=== PATIENT | female | born 1945 | race Caucasian/White ===

== ENCOUNTER 2018-02-10 16:01 | Emergency (ER) | payer OTHER ==
[2018-02-10 16:21] VITALS: BP 128/64; PULSE 90; TEMP 97.6; BMI 18.1
--- NOTE | 2018-02-10 16:55 | PDOC ---
History of Present Illness - General History Source: Patient Exam Limitations: No Limitations - History of Present Illness Initial Comments: 02/10/18 18:19 The patient is a 72 year old female with significant past medical history of hypertension, osteoporosis, GI bleeding, and right inguinal hernia who presents to the emergency department complaining of right scapular and right flank pain since yesterday. The patient describes the pain as mild to moderate, without radiation, and denies any modifying factors. The patient reports lifting a heavy bucket of water which resulted in her falling on the floor in pain. The patient reports not being able to sleep secondary to pain. The patient reports associated symptoms of nausea and epigastric discomfort. The patient admits to taking Meloxicam which temporarily alleviated the pain during the day, but it continued shortly after at night. The patient denies chest pain, shortness of breath, cough, headache, and dizziness. Denies fevers, chills, vomiting, diarrhea, and constipation. Denies dysuria, frequency, urgency, and hematuria. Allergies: Diazepam and Morphine. Past surgical history: Hernia repair(2009) and parathyroid removal. Social history: Current everyday smoker. No reported alcohol or drug use. PCP: Dr. Walter Mims <Gokul Smith - Last Filed: 02/10/18 18:55> <Kasey Summers - Last Filed: 02/11/18 02:46> - General Chief Complaint: Injury Stated Complaint: BACK PAIN Time Seen by Provider: 02/10/18 16:35 Past History <Gokul Smith - Last Filed: 02/10/18 18:55> - Past Medical History Anemia: No Asthma: No Cancer: No Cardiac Disorders: No CVA: No COPD: No CHF: No Dementia: No Diabetes: Yes (pre diabetic) GI Disorders: Yes (GERD) Disorders: No HTN: Yes Hypercholesterolemia: Yes Liver Disease: No Seizures: No Thyroid Disease: Yes (HYPER) - Surgical History Abdominal Surgery: Yes (hernia repair 2009) Appendectomy: No Cardiac Surgery: No Cholecystectomy: No Lung Surgery: No Neurologic Surgery: No Orthopedic Surgery: No - Suicide/Smoking/Psychosocial Hx Smoking History: Never smoked Have you smoked in the past 12 months: No Information on smoking cessation initiated: No Hx Alcohol Use: No Drug/Substance Use Hx: No Substance Use Type: None Hx Substance Use Treatment: No <Kasey Summers - Last Filed: 02/11/18 02:46> - Past Medical History Allergies/Adverse Reactions: Allergies Allergy/AdvReac Type Severity Reaction Status Date / Time diazepam [From Valium] Allergy Severe Itching Verified 02/10/18 16:20 morphine AdvReac Intermediate Verified 02/10/18 16:20 Home Medications: Ambulatory Orders Enalapril Maleate 10 mg PO DAILY 01/18/13 Esomeprazole Mag Trihydrate [Nexium] 40 mg PO DAILY 01/30/14 Calcium Carbonate/Vitamin D3 [Calcium 600 + Vit D 400 Softgl] 1 tab PO DAILY Cholecalciferol (Vitamin D3) [Vitamin D3] 50,000 unit PO ASDIR 09/23/16 Warner-3 Acid Ethyl Esters [Lovaza] 1 tab PO DAILY 09/23/16 Polyethylene Glycol 3350 [Miralax (For Daily Use) -] 17 gm PO DAILY 09/23/16 Zolpidem Tartrate [Ambien] 2.5 mg PO HS 09/23/16 Review of Systems - Review of Systems Able to Perform ROS?: Yes Comments:: 02/10/18 18:20 CONSTITUTIONAL: +loss of appetite Absent: fever, chills, diaphoresis, generalized weakness, and malaise. HEENT: Absent: rhinorrhea, nasal congestion, throat pain, throat swelling, difficulty swallowing, mouth swelling, ear pain, eye pain, visual Changes CARDIOVASCULAR: Absent: chest pain, syncope, palpitations, irregular heart rate, lightheadedness , peripheral edema RESPIRATORY: Absent: cough, shortness of breath, dyspnea with exertion, orthopnea, wheezing, stridor, hemoptysis GASTROINTESTINAL: +Nausea. Absent: abdominal pain, abdominal distension, vomiting, diarrhea, constipation, melena, hematochezia GENITOURINARY: +Right flank pain. Absent: dysuria, frequency, urgency, hesitancy, hematuria, genital pain MUSCULOSKELETAL: +Upper thoracic pain. Absent: myalgia, arthralgia, joint swelling SKIN: Absent: rash, itching, pallor HEMATOLOGIC/IMMUNOLOGIC: Absent: easy bleeding, easy bruising, lymphadenopathy, frequent infections ENDOCRINE: Absent: unexplained weight gain, unexplained weight loss, heat intolerance, cold intolerance NEUROLOGIC: Absent: headache, focal weakness or paresthesias, dizziness, unsteady gait, seizure, mental status changes, bladder or bowel incontinence PSYCHIATRIC: Absent: anxiety, depression, suicidal or homicidal ideation, hallucinations. <Gokul Smith - Last Filed: 02/10/18 18:55> *Physical Exam - Vital Signs Last Vital Signs Temp Pulse Resp BP Pulse Ox 97.6 F 90 16 128/64 100 02/10/18 16:05 02/10/18 16:05 02/10/18 16:05 02/10/18 16:05 02/10/18 16:05 - Physical Exam Comments: 02/10/18 18:20 GENERAL: Well developed, well nourished. Awake and alert. No acute distress. HEENT: Normocephalic, atraumatic. PERRLA, EOMI. No conjunctival pallor. Sclera are non- icteric. Moist mucous membranes. Oropharynx is clear. NECK: +Bruit. Supple. Full ROM. No JVD. No thyromegaly. No lymphadenopathy. CARDIOVASCULAR: Regular rate and rhythm. No murmurs, rubs, or gallops. Distal pulses are 2+ and symmetric. PULMONARY: No evidence of respiratory distress. Lungs clear to auscultation bilaterally. No wheezing, rales or rhonchi. ABDOMINAL: Soft. Non-tender. Non-distended. No rebound or guarding. No organomegaly. Normoactive bowel sounds. MUSCULOSKELETAL +Tenderness to mid-thoracic area. +tenderness to right flank.Normal range of motion at all joints. No bony deformities. No CVA tenderness. EXTREMITIES: No cyanosis. No clubbing. No edema. No calf tenderness. SKIN: Warm and dry. Normal capillary refill. No rashes. No jaundice. NEUROLOGICAL: Alert, awake, appropriate. Cranial nerves 2-12 intact. No deficits to light touch and temperature in face, upper extremities and lower extremities. No motor deficits in the in face, upper extremities and lower extremities. Normoreflexic in the upper and lower extremities. Normal speech. Toes are down- going bilaterally. Gait is normal without ataxia. PSYCHIATRIC: Cooperative. Good eye contact. Appropriate mood and affect. <BayrondorisGokul - Last Filed: 02/10/18 18:55> - Vital Signs Last Vital Signs Temp Pulse Resp BP Pulse Ox 97.6 F 90 16 128/64 100 02/10/18 16:05 02/10/18 16:05 02/10/18 16:05 02/10/18 16:05 02/10/18 16:05 <Kasey Summers - Last Filed: 02/11/18 02:46> ED Treatment Course - Medications Given in the ED: ED Medications Discontinued Medications Generic Name Dose Route Start Last Admin Trade Name Xiao PRN Reason Stop Dose Admin Acetaminophen 650 mg 02/10/18 16:57 02/10/18 17:30 Tylenol - PO 02/10/18 16:58 650 mg ONCE ONE Administration <Gokul Smith - Last Filed: 02/10/18 18:55> Medical Decision Making - Medical Decision Making 02/10/18 18:52 72-year-old female with a history osteoporosis presents with right flank and right mid thoracic pain. She denies any history of recent trauma. Concern for cardiac events and also musculoskeletal problems such as vertebral compression fractures. Patient stated she didn't like the side effects of Valium and morphine and she was given Tylenol initially Plan was to do an EKG and to give her some additional pain medicine, but she left AGAINST MEDICAL ADVICE <Kasey Summers - Last Filed: 02/11/18 02:46> *DC/Admit/Observation/Transfer - Attestations Scribe Attestion: 02/10/18 18:20 Documentation prepared by Gokul Smith, acting as medical dermatologist for Kasey Summers MD. <Gokul Smith - Last Filed: 02/10/18 18:55> <Kasey Summers - Last Filed: 02/11/18 02:46> Diagnosis at time of Disposition: AMA - Signed out against medical advice Back pain Qualifiers: Back pain location: thoracic back pain Chronicity: acute Back pain laterality: right Qualified Code(s): M54.6 - Pain in thoracic spine - Discharge Dispostion Disposition: AGAINST MEDICAL ADVICE - Referrals Referrals: Walter Mims MD [Primary Care Provider] -
[2018-02-10] MEDS ORDERED: ACETAMINOPHEN 325 MG TABLET (FP) PO ONE (16:57)
[2018-02-10] MEDS ORDERED: ACETAMINOPHEN 325 MG TABLET (FP) ONE (17:28)
== END 2018-02-10 19:09 | disposition left against medical advice (07) ==
LOC: JER 16:01
DX: M54.6 Pain in thoracic spine (principal); X50.0XXA Overexertion from strenuous movement or load, initial encounter; Y93.89 Activity, other specified; Y92.89 Other specified places as the place of occurrence of the external cause; Y99.8 Other external cause status; I10 Essential (primary) hypertension; E78.00 Pure hypercholesterolemia, unspecified; R73.03 Prediabetes; E05.90 Thyrotoxicosis, unspecified without thyrotoxic crisis or storm
CPT/HCPCS: 71045-TC-FY; 72070-TC-FY; 99282-25

== ENCOUNTER 2019-07-25 10:02 | Emergency (ER) | payer OTHER | END 2019-07-25 11:27 | disposition home or self-care (01) | LOC: JER 10:02 → JERFT 11:27 ==

== ENCOUNTER 2021-06-24 10:31 | Emergency (ER) | payer OTHER ==
[2021-06-24 10:40] VITALS: BP 138/77; PULSE 99; TEMP 97.5; BMI 17.2
[2021-06-24 11:30] LABS: EPI CELLS 2 /uL (0-25.1); HYALINE CASTS 0 /uL (0-3.1); URINE APPEARANCE CLEAR; URINE BACTERIA 0 /uL (0-1359); URINE BILIRUBIN NEGATIVE (NEGATIVE); URINE COLOR YELLOW; URINE GLUCOSE (UA) NEGATIVE (NEGATIVE); URINE KETONE NEGATIVE (NEGATIVE); URINE LEUK ESTERASE NEGATIVE (NEGATIVE); URINE NITRITE NEGATIVE (NEGATIVE); URINE PROTEIN NEGATIVE (NEGATIVE); URINE RBC 7 /uL (0-23.9); URINE UROBILINOGEN 0.2 mg/dL (0.2-1.0); URINE WBC 3 /uL (0-25.8)
== END 2021-06-24 11:53 | disposition home or self-care (01) ==
LOC: JER 10:31 → JERFT 10:31
DX: B37.9 Candidiasis, unspecified (principal)
CPT/HCPCS: 81003; 87086; 99283-25

== ENCOUNTER 2023-03-23 16:50 | Emergency (ER) | payer OTHER ==
[2023-03-23 17:26] VITALS: RESP 16
[2023-03-23 17:34] VITALS: BMI 17.2
[2023-03-23] MEDS ORDERED: LACTATED RINGERS SOLUTION 1000 ML INFUS.BAG IV ONE (17:42)
[2023-03-23] MEDS ORDERED: ONDANSETRON 4 MG/2 ML VIAL IVPUSH ONE (17:42)
[2023-03-23] MEDS ORDERED: diazePAM CARPU-JECT 10 MG/2 ML DISP.SYRIN IVPUSH ONE (17:43)
[2023-03-23] MEDS ORDERED: ONDANSETRON *ODT* 4 MG TABLET ONE (17:52)
[2023-03-23] MEDS ORDERED: diazePAM 5 MG TABLET ONE (17:53)
[2023-03-23] MEDS ORDERED: diazePAM CARPU-JECT 10 MG/2 ML DISP.SYRIN ONE (17:57)
[2023-03-23] MEDS ORDERED: ONDANSETRON 4 MG/2 ML VIAL ONE (17:58)
[2023-03-23] MEDS ORDERED: PROCHLORPERAZINE INJECTION 10 MG/2 ML VIAL IVPB ONE (18:19)
[2023-03-23] MEDS ORDERED: PROCHLORPERAZINE INJECTION 10 MG/2 ML VIAL ONE (18:23)
[2023-03-23 18:45] LABS: BASO % 0.6 % (0-2.0); EOS % 0.5 % (0-4.5); HEMATOCRIT 37.4 % (32.4-45.2); HEMOGLOBIN 12.7 GM/dL (10.7-15.3); MCH 27.8 pg (25.7-33.7); MCHC 33.9 g/dl (32.0-36.0); MEAN CELL VOLUME 82.1 fl (80-96); MEAN PLT VOLUME 10.3 fl (7.5-11.1); MONO % 2.8 % (3.8-10.2); NEUT % 82.1 % (42.8-82.8); PLATELET COUNT 136 10^3/uL (134-434); RBC 4.55 M/mm3 (3.60-5.2); RDW 14.2 % (11.6-15.6); WHITE BLOOD COUNT 7.9 K/mm3 (4.0-10.0)
[2023-03-23 18:47] LABS: EPI CELLS 8 /uL (0-25.1); HYALINE CASTS 0 /uL (0-3.1); PH,URINE 8.5 (5.0-8.0); URINE APPEARANCE CLEAR; URINE BACTERIA 17 /uL (0-1359); URINE BILIRUBIN NEGATIVE (NEGATIVE); URINE COLOR YELLOW; URINE GLUCOSE (UA) NEGATIVE (NEGATIVE); URINE KETONE TRACE (NEGATIVE); URINE LEUK ESTERASE NEGATIVE (NEGATIVE); URINE NITRITE NEGATIVE (NEGATIVE); URINE PROTEIN TRACE (NEGATIVE); URINE RBC 53 /uL (0-23.9); URINE UROBILINOGEN 0.2 mg/dL (0.2-1.0); URINE WBC 6 /uL (0-25.8)
[2023-03-23 19:01] LABS: POTASSIUM 4.1 mmol/L (3.5-5.1)
[2023-03-23 19:04] LABS: ALBUMIN 4.1 g/dl (3.4-5.0); BLOOD UREA NITROGEN 12.8 mg/dL (7-18); CALCIUM 8.9 mg/dL (8.5-10.1); MAGNESIUM 1.9 mg/dL (1.8-2.4)
[2023-03-23 19:07] LABS: CREATININE 0.9 mg/dL (0.55-1.3)
[2023-03-23 19:09] LABS: BILIRUBIN,TOTAL 0.5 mg/dL (0.2-1); TOT PROT 7.1 g/dl (6.4-8.2)
[2023-03-23 19:26] VITALS: BP 137/60; PULSE 95; TEMP 97.7
== END 2023-03-23 20:43 | disposition home or self-care (01) ==
LOC: JER 16:50
PROC: 3E033GC Introduction of Other Therapeutic Substance into Peripheral Vein, Percutaneous Approach (ICD-10-PCS; principal; 2023-03-23)
PROC: 3E033GC Introduction of Other Therapeutic Substance into Peripheral Vein, Percutaneous Approach (ICD-10-PCS; 2023-03-23)
DX: R42 Dizziness and giddiness (principal); Z20.822 Contact with and (suspected) exposure to COVID-19
CPT/HCPCS: 0241U-QW; 36415; 71045-TC-FY; 80053; 81003; 82962; 83735; 84439; 84443; 84484; 85025; 87086; 93005; 93010; 99285-25